=== PATIENT | male | born 1975 | race African-American/Black ===

== ENCOUNTER 2017-08-28 03:55 | Emergency (ER) | payer OTHER ==
[~2017-08-28] VITALS: Ht 182.9 cm; Wt 93.0 kg
--- NOTE | 2017-08-28 04:17 | ED.ADGEN ---
Past History Past Medical History: Hypertension, Other Adult General Chief Complaint Chief Complaint ".. I drank some water.. and it caused me to get short of breath..." HPI HPI Patient is a 41 year old [place] male inmate who presents with above hx and complaints of dyspnea after drinking unknown system. Pt. denies prior hx of dyspnea. Denies intake of any drugs. Pt. states it felt like his throat was swollen. Intake of substance was approximately 2000 hrs. Pt. has hx personality disorder, polysubstance abuse and HTN. Review of Systems Review of Systems Constitutional: Denies fever or chills [] Eyes: Denies change in visual acuity, redness, or eye pain [] HENT: Denies nasal congestion or sore throat [] Respiratory: Complaints of shortness of breath after taking unknown substance. Cardiovascular: No additional information not addressed in HPI [] GI: Denies abdominal pain, nausea, vomiting, bloody stools or diarrhea [] : Denies dysuria or hematuria [] Musculoskeletal: Denies back pain or joint pain [] Integument: Denies rash or skin lesions [] Neurologic: Denies headache, focal weakness or sensory changes [] Endocrine: Denies polyuria or polydipsia [] All other systems were reviewed and found to be within normal limits, except as documented in this note. Family History Family History Non-contributory Current Medications Current Medications Current Medications Medications (Trade) Dose Ordered Sig/Chintan Start Time Stop Time Status Last Admin Dose Admin Albuterol/ Ipratropium (Duoneb) 3 ml 1X ONCE 08/28/17 04:30 08/28/17 05:18 DC 08/28/17 04:34 3 ML Diphenhydramine HCl (Benadryl) 50 mg 1X ONCE 08/28/17 04:30 08/28/17 05:18 DC 08/28/17 04:46 50 MG Famotidine (Pepcid Vial) 20 mg 1X ONCE 08/28/17 04:30 08/28/17 05:18 DC 08/28/17 04:43 20 MG Lactated Ringer's 1,000 ml @ 1,000 mls/hr 1X ONCE 08/28/17 05:15 08/28/17 06:14 DC 08/28/17 05:15 1,000 MLS/HR Magnesium Hydroxide (Milk Of Magnesia) 2,400 mg 1X ONCE 08/28/17 06:30 08/28/17 06:31 DC 08/28/17 06:31 2,400 MG Methylprednisolone Sodium Succinate (SOLU-Medrol 125MG VIAL) 125 mg 1X ONCE 08/28/17 04:30 08/28/17 05:18 DC 08/28/17 04:43 125 MG See Nursing for home meds Allergies Allergies Allergies Coded Allergies Type Severity Reaction Last Updated Verified No Known Drug Allergies 08/28/17 No NKDA Physical Exam Physical Exam Constitutional: Well developed, well nourished, no acute distress, non-toxic appearance. [] HENT: Normocephalic, atraumatic, bilateral external ears normal, oropharynx moist, no oral exudates, nose normal. [] Eyes: PERRLA, EOMI, conjunctiva normal, no discharge. [] Neck: Normal range of motion, no tenderness, supple, no stridor. [] Cardiovascular:Heart rate regular rhythm, no murmur [] Lungs & Thorax: Bilateral breath sounds equal at apex on auscultation [] Abdomen: Bowel sounds normal, soft, no tenderness, no masses, no pulsatile masses. [] Skin: Warm, dry, no erythema, no rash. [] Back: No tenderness, no CVA tenderness. [] Extremities: No tenderness, no cyanosis, no clubbing, ROM intact, no edema. [] Neurologic: Alert and oriented X 3, normal motor function, normal sensory function, no focal deficits noted. [] Psychologic: Affect normal, judgement normal, mood normal. [] Current Patient Data Vital Signs Vital Signs Date Time Temp Pulse Resp B/P (MAP) Pulse Ox O2 Delivery O2 Flow Rate FiO2 08/28/17 04:36 100 Room Air 08/28/17 04:00 98.6 102 22 Lab Results Laboratory Tests Test 08/28/17 04:45 08/28/17 06:05 White Blood Count 5.8 x10^3/uL (4.0-11.0) Red Blood Count 4.43 x10^6/uL (4.30-5.70) Hemoglobin 12.8 g/dL (13.0-17.5) L Hematocrit 37.9 % (39.0-53.0) L Mean Corpuscular Volume 86 fL (79-100) Mean Corpuscular Hemoglobin 29 pg (25-35) Mean Corpuscular Hemoglobin Concent 34 g/dL (31-37) Red Cell Distribution Width 14.9 % (11.5-14.5) H Platelet Count 249 x10^3/uL (140-400) Neutrophils (%) (Auto) 66 % (31-73) Lymphocytes (%) (Auto) 23 % (24-48) L Monocytes (%) (Auto) 9 % (0-9) Eosinophils (%) (Auto) 1 % (0-3) Basophils (%) (Auto) 0 % (0-3) Neutrophils # (Auto) 3.9 x10^3uL (1.8-7.7) Lymphocytes # (Auto) 1.3 x10^3/uL (1.0-4.8) Monocytes # (Auto) 0.5 x10^3/uL (0.0-1.1) Eosinophils # (Auto) 0.1 x10^3/uL (0.0-0.7) Basophils # (Auto) 0.0 x10^3/uL (0.0-0.2) Prothrombin Time 11.0 SEC (9.4-11.4) Prothrombin Time INR 1.1 (0.9-1.1) Sodium Level 140 mmol/L (136-145) Potassium Level 4.0 mmol/L (3.5-5.1) Chloride Level 104 mmol/L (98-107) Carbon Dioxide Level 26 mmol/L (21-32) Anion Gap 10 (6-14) Blood Urea Nitrogen 14 mg/dL (8-26) Creatinine 1.8 mg/dL (0.7-1.3) H Estimated GFR (Cockcroft-Gault) 50.3 Glucose Level 138 mg/dL (70-99) H Calcium Level 8.9 mg/dL (8.5-10.1) Magnesium Level 2.4 mg/dL (1.8-2.4) Total Bilirubin 0.4 mg/dL (0.2-1.0) Direct Bilirubin 0.1 mg/dL (0.0-0.2) Aspartate Amino Transferase (AST) 20 U/L (15-37) Alanine Aminotransferase (ALT) 27 U/L (16-63) Alkaline Phosphatase 75 U/L (46-116) LH-Sdr-J-Type Natriuretic Peptide 70 pg/mL (0-124) Total Protein 7.3 g/dL (6.4-8.2) Albumin 3.8 g/dL (3.4-5.0) Salicylates Level 1.9 mg/dL (2.8-20.0) L Salicylate Last Dose Date 03/06/11 Salicylate Last Dose Time 1111 Acetaminophen Level < 2.0 mcg/mL (10-30) L Acetaminophen Last Dose Date 03/06/11 Acetaminophen Last Dose Time 1111 Ethyl Alcohol Level < 10 mg/dL (0-10) Urine Collection Type Unknown Urine Color Yellow Urine Clarity Clear Urine pH 7.0 Urine Specific [place] 1.015 Urine Protein Neg (NEG-TRACE) Urine Glucose (UA) Neg mg/dL (NEG) Urine Ketones (Stick) Neg mg/dL (NEG) Urine Blood Neg (NEG) Urine Nitrite Neg (NEG) Urine Bilirubin Neg (NEG) Urine Urobilinogen Dipstick 0.2 mg/dL (0.2 mg/dL) Urine Leukocyte Esterase Neg (NEG) Urine RBC 0 /HPF (0-2) Urine WBC 0 /HPF (0-4) Urine Squamous Epithelial Cells Occ /LPF Urine Bacteria 0 /HPF (0-FEW) Urine Opiates Screen Neg (NEG) Urine Methadone Screen Neg (NEG) Urine Barbiturates Neg (NEG) Urine Phencyclidine Screen Neg (NEG) Urine Amphetamine/Methamphetamine Pos (NEG) Urine Benzodiazepines Screen Neg (NEG) Urine Cocaine Screen Neg (NEG) Urine Cannabinoids Screen Neg (NEG) Urine Ethyl Alcohol Neg (NEG) EKG EKG My interpretation of EKG shows a sinus rhythm at 75 bpm. There is slightly prolonged IL [id number]. No findings acute STEMI with contralateral changes. Does show some mild J-point elevation the 1,2,3 and 4.[] Radiology/Procedures Radiology/Procedures My interpretation chest x-ray shows[] no acute cardiopulmonary findings. Does have borderline cardiomegaly. Course & Med Decision Making Course & Med Decision Making Pertinent Labs and Imaging studies reviewed. (See chart for details). Pt. to be discharge to Medical Unit at [facility]. Recommend 48 hrs clear fluid diet and observation. Return if any concerns. [] Final Impression Final Impression 1, Report allergic reaction to un known substance.[] 2. HTN 3. Anemia 4. Elev. Creat 5. Elev. Glucose 6. Amphetamine/ Methamphetamine + Drug screen Problems: Dragon Disclaimer Dragon Disclaimer This electronic medical record was generated, in whole or in part, using a voice recognition dictation system. PANDA COLBY MD August 28, 2017 04:17
[2017-08-28] MEDS ORDERED: IV RINGERS SOLUTION,LACTATED 1,000 ML IV STA (04:28)
[2017-08-28] MEDS ORDERED: diphenhydrAMINE 50 MG/ML VIAL IVP ONE (04:30)
[2017-08-28] MEDS ORDERED: methylPREDNISolone SOD SUCC PF 125 MG/2 ML VIAL. IV ONE (04:30)
[2017-08-28] MEDS ORDERED: FAMOTIDINE 20 MG/2 ML VIAL IVP ONE (04:30)
[2017-08-28] MEDS ORDERED: IPRATRPIUM/ALBUTEROL 0.5/2.5MG 3 ML NEBU. NEB ONE (04:30)
--- NOTE | 2017-08-28 04:49 | EKG ---
[address] [address] Test Date: 2017-08-28 Test Time: 04:45:40 Pat Name: CHEN GARCIA Department: Room: Gender: M [employer] Supervisor: BRONWYN : 1975 Requested By: PANDA COLBY Order Number: [id number] Reading MD: Edward Jackson MD Measurements Intervals Mobile Rate: 75 P: 41 AR: 228 QRS: 7 QRSD: 76 T: 23 QT: 372 QTc: 418 Interpretive Statements SINUS RHYTHM PROLONGED AR INTERVAL Electronically Signed On 08-30-2017 12:42:54 CDT by Edward Jackson MD
[2017-08-28 05:10] LABS: BASO % 0 % (0-3); EOS # 0.1 x10^3/uL (0.0-0.7); EOS % 1 % (0-3); HEMATOCRIT 37.9 % (39.0-53.0); HEMOGLOBIN 12.8 g/dL (13.0-17.5); LYMPH # 1.3 x10^3/uL (1.0-4.8); LYMPH % 23 % (24-48); MEAN CORPUSCULAR HEMOGLOBIN 29 pg (25-35); MEAN CORPUSCULAR HGB CONC 34 g/dL (31-37); MEAN CORPUSCULAR VOLUME 86 fL (79-100); MONO # 0.5 x10^3/uL (0.0-1.1); MONO % 9 % (0-9); NEUT # 3.9 x10^3uL (1.8-7.7); NEUT % 66 % (31-73); PLATELET COUNT 249 x10^3/uL (140-400); RED BLOOD COUNT 4.43 x10^6/uL (4.30-5.70); RED CELL DISTRIBUTION WIDTH 14.9 % (11.5-14.5); WHITE BLOOD COUNT 5.8 x10^3/uL (4.0-11.0)
[2017-08-28 05:12] LABS: ETHANOL < 10 mg/dL (0-10); SALIC 1.9 mg/dL (2.8-20.0)
[2017-08-28 05:13] LABS: ACETAMIN < 2.0 mcg/mL (10-30)
[2017-08-28] MEDS ORDERED: IV RINGERS SOLUTION,LACTATED 1,000 ML IV ONE (05:15)
[2017-08-28] MEDS ORDERED: IV RINGERS SOLUTION,LACTATED 1,000 ML IV SCH (05:15)
[2017-08-28 05:18] LABS: ALBUMIN 3.8 g/dL (3.4-5.0); CALCIUM 8.9 mg/dL (8.5-10.1); CREATININE 1.8 mg/dL (0.7-1.3); DIRECT BILIRUBIN 0.1 mg/dL (0.0-0.2); GFR 50.3; MAGNESIUM 2.4 mg/dL (1.8-2.4); TOTAL BILIRUBIN 0.4 mg/dL (0.2-1.0); TOTAL PROTEIN 7.3 g/dL (6.4-8.2)
[2017-08-28 06:15] VITALS: BP 158/103
[2017-08-28] MEDS ORDERED: MAGNESIUM HYDROXIDE 2,400 MG/30 ML ORAL.SUSP. PO ONE (06:30)
[2017-08-28 06:58] LABS: BARBITURATES NEG (NEG); BENZODIAZEPINES NEG (NEG); CANNABINOIDS NEG (NEG); COCAINE NEG (NEG); METHADONE NEG (NEG); OPIATES NEG (NEG); PHENCYCLIDINE NEG (NEG)
[2017-08-28 07:04] LABS: AMPHETAMINE/METHAMPHETAMINE POS (NEG)
[2017-08-28 07:11] LABS: BACTERIA,URINE 0 /HPF (0-FEW); BILIRUBIN,URINE NEG (NEG); CLARITY,URINE CLEAR; COLOR,URINE YELLOW; GLUCOSE,URINE NEG (NEG); NITRITE,URINE NEG (NEG); RBC,URINE 0 /HPF (0-2); SQUAMOUS EPITHELIAL CELL,UR OCC /LPF; UROBILINOGEN,URINE 0.2 mg/dL (0.2 mg/dL); WBC,URINE 0 /HPF (0-4)
--- NOTE | 2017-08-28 07:41 | RAD ---
Exam: AP portable chest History: Possible ingestion of harmful substance. Shortness of breath. Comparison: None. Findings: The heart and mediastinal structures are within normal limits for size. Lungs are without infiltrate. No pleural effusion or pneumothorax is identified. Impression: 1. No acute cardiopulmonary process. Electronically signed by: Isaac Peters MD (08/28/2017 7:39 AM) [facility]
== END 2017-08-28 06:45 | disposition home or self-care (01) ==
LOC: ER 03:55
DX: T78.49XA Other allergy, initial encounter (principal); I10 Essential (primary) hypertension; D64.9 Anemia, unspecified; F15.10 Other stimulant abuse, uncomplicated; R73.02 Impaired glucose tolerance (oral); R79.89 Other specified abnormal findings of blood chemistry; F60.9 Personality disorder, unspecified; X58.XXXA Exposure to other specified factors, initial encounter
CPT/HCPCS: 36415; 71045; 80048; 80076; 80307; 81001; 83735; 83880; 85025; 85610; 93005; 94640; 96374; 96375; 99285; G0480; J1200; J2930; J7120; J7620; S0028; G0479